=== PATIENT | female | born 1960 | race Two or more races ===

== ENCOUNTER 2017-04-12 11:31 | Emergency (ER) | payer SELFPAY ==
[~2017-04-12] VITALS: Ht 167.6 cm; Wt 68.0 kg
--- NOTE | 2017-04-12 11:31 | NUR ---
[id number] S/P SEIZURE WHILE DRIVING. POSTICTAL. BS IN FIELD 105. NAD NOTED. VSS. RR EVEN AND UNLABORED. PENDING MD LAU.
[2017-04-12] MEDS ORDERED: ACETAMINOPHEN ES 500 MG TABLET ONE (11:48)
[2017-04-12 11:58] LABS: BASOPHILS # (AUTO) 0.1 /CMM (0.0-0.2); BASOPHILS % (AUTO) 0.9 % (0.0-2.0); EOSINOPHILS # (AUTO) 0.3 /CMM (0.0-0.7); EOSINOPHILS % (AUTO) 2.9 % (0.0-6.0); HEMATOCRIT 45 % (33-45); HEMOGLOBIN 14.9 g/dL (11.5-14.8); LYMPHOCYTES # (AUTO) 2.1 /CMM (0.8-4.8); LYMPHOCYTES % (AUTO) 21.8 % (20.0-44.0); MEAN CORPUSCULAR HEMOGLOBIN 32 PG (26.0-33.0); MEAN CORPUSCULAR HGB CONC 33 g/dl (31.0-36.0); MEAN CORPUSCULAR VOLUME 96 fL (82-100); MONOCYTES # (AUTO) 1.1 /CMM (0.1-1.30); MONOCYTES % (AUTO) 11.3 % (2.0-12.0); NEUTROPHILS # (AUTO) 6.2 /CMM (1.8-8.9); NEUTROPHILS % (AUTO) 63.1 % (43.0-81.0); PLATELET COUNT (AUTO) 331 /CMM (150-450); RED BLOOD CELL COUNT(AUTO) 4.62 MIL/uL (4.0-5.2); WHITE BLOOD COUNT (AUTO) 9.8 K/uL (4.3-11.0)
[2017-04-12] MEDS ORDERED: LEVETIRACETAM (500MG) 500 MG in IV NS 0.9% 100 ML IV ONE (12:00)
[2017-04-12] MEDS ORDERED: ACETAMINOPHEN ES 500 MG TABLET PO ONE (12:00)
[2017-04-12 12:07] LABS: CALCIUM, SERUM 9.4 mg/dL (8.5-10.1); CARBON DIOXIDE 23 mmol/L (21-32); CHLORIDE 102 mmol/L (98-107); CREATININE 0.9 mg/dL (0.6-1.3); GLUCOSE 107 mg/dL (74-106); POTASSIUM 3.6 mmol/L (3.5-5.1); SODIUM SERUM 137 mmol/L (136-145); UREA NITROGEN, BLOOD 12 mg/dL (7-18)
--- NOTE | 2017-04-12 12:10 | NUR ---
MEDS GIVEN ORDERED
[2017-04-12 12:11] LABS: PROTHROMBIN TIME 10.4 SECS (9.5-12.7)
[2017-04-12 12:13] LABS: ALANINE AMINOTRANSFERASE 32 U/L (12-78); ALBUMIN 4.1 g/dL (3.4-5.0); ALCOHOL, BLOOD < 3 mg/dL (0-0); ALKALINE PHOSPHATASE 75 U/L (46-116); ASPARTATE AMINOTRANSFERASE 16 U/L (15-37); BILIRUBIN,TOTAL 0.3 mg/dL (0.2-1.0); TOTAL PROTEIN, SERUM 7.5 g/dL (6.4-8.2)
[2017-04-12 13:49] VITALS: BP 125/87
== END 2017-04-12 13:51 | disposition home or self-care (01) ==
LOC: ER 11:32
DX: G40.909 Epilepsy, unspecified, not intractable, without status epilepticus (principal); F17.210 Nicotine dependence, cigarettes, uncomplicated
CPT/HCPCS: 36415; 80048; 80076; 80305; 85025; 85730; 96365; 99284; A4606; G0480; J1953; J7030; Z7610

== ENCOUNTER 2019-11-14 13:48 | Inpatient (IN) | payer OTHER ==
[2019-11-14] VITALS (9 sets, daily range): BP systolic 89–148; BP diastolic 47–81
[~2019-11-14] VITALS: Ht 177.8 cm; Wt 77.1 kg
--- NOTE | 2019-11-14 13:48 | NUR ---
PT BIBRA FROM HOME C/O PALPITATIONS STARTED THIS MORNING, PT IS AAOX4, NOT IN RESPIRATORY DISTRESS, HOOKED TO APPLE TURNER, KEPT RESTED AND COMFORTABLE. WILL CONTINUE TO MONITOR.
--- NOTE | 2019-11-14 13:55 | NUR ---
IV LINE ESTABLISHED BLOOD DRAWN AND SENT TO LAB
--- NOTE | 2019-11-14 14:02 | NUR ---
ROSINA PICHARDO AT BEDSIDE FOR EKG.
[2019-11-14] MEDS ORDERED: DILTIAZEM HCL 25 MG IV ONE (14:08)
[2019-11-14] MEDS ORDERED: Magnesium 1GM/D5W 100ML PREMIX PIGGYBACK IV ONE (14:20)
[2019-11-14] MEDS ORDERED: Magnesium 1GM/D5W 100ML PREMIX 200 ML IV ONE (14:21)
[2019-11-14 14:24] LABS: BASOPHILS # (AUTO) 0.1 /CMM (0.0-0.2); BASOPHILS % (AUTO) 0.8 % (0.0-2.0); EOSINOPHILS % (AUTO) 1.9 % (0.0-6.0); HEMATOCRIT 44 % (33-45); HEMOGLOBIN 14.5 g/dL (11.5-14.8); MEAN CORPUSCULAR HGB CONC 33 g/dl (31.0-36.0); MEAN CORPUSCULAR VOLUME 96 fL (82-100); MONOCYTES # (AUTO) 0.7 /CMM (0.1-1.30); MONOCYTES % (AUTO) 8.3 % (2.0-12.0); NEUTROPHILS # (AUTO) 5.9 /CMM (1.8-8.9); PLATELET COUNT (AUTO) 242 /CMM (150-450); RED BLOOD CELL COUNT(AUTO) 4.56 MIL/uL (4.0-5.2); WHITE BLOOD COUNT (AUTO) 8.9 K/uL (4.3-11.0)
[2019-11-14] MEDS ORDERED: IV NS 0.9% 500 ML BAG IV ONE (14:30)
[2019-11-14] MEDS ORDERED: PROCAINAMIDE HCL 500 MG/ML VIAL IV ONE (14:30)
--- NOTE | 2019-11-14 14:30 | NUR ---
DR MORELOS CARDIO CERTIFIED APPLIANCE SERVICE TECHNICIAN TALKING TO DR PORTER.
[2019-11-14 14:31] LABS: CALCIUM, SERUM 9.3 mg/dL (8.5-10.1); CARBON DIOXIDE 29 mmol/L (21-32); CHLORIDE 103 mmol/L (98-107); CREATININE 0.9 mg/dL (0.6-1.3); GLUCOSE 120 mg/dL (74-106); POTASSIUM 3.8 mmol/L (3.5-5.1); SODIUM SERUM 139 mmol/L (136-145); UREA NITROGEN, BLOOD 16 mg/dL (7-18)
--- NOTE | 2019-11-14 14:34 | NUR ---
TRANSFER KNITTER AT BEDSIDE FOR XRAY.
[2019-11-14] MEDS ORDERED: AMIODARONE 150 MG/3 ML VIAL IV ONE ×3 (14:35→15:00)
[2019-11-14 14:47] LABS: ALANINE AMINOTRANSFERASE 24 U/L (12-78); ALBUMIN 4.3 g/dL (3.4-5.0); ALKALINE PHOSPHATASE 80 U/L (46-116); ASPARTATE AMINOTRANSFERASE 19 U/L (15-37); B-TYPE NATRIURETIC PEPTIDE 92 PG/ML (0-125); BILIRUBIN,DIRECT 0.1 mg/dL (0.0-0.2); BILIRUBIN,TOTAL 0.4 mg/dL (0.2-1.0); TOTAL PROTEIN, SERUM 7.8 g/dL (6.4-8.2)
--- NOTE | 2019-11-14 14:48 | NUR ---
MOVE SHEET SUBMITTED TO ADMITTING AND CALLED FOR ICU BED.
[2019-11-14] MEDS ORDERED: AMIODARONE 150 MG in IV D5W 100 ML IV ONE (15:00)
[2019-11-14] MEDS ORDERED: AMIODARONE 450 MG in IV D5W 250 ML IV ONE (15:00)
--- NOTE | 2019-11-14 15:13 | NUR ---
GOT ICU BED 262
--- NOTE | 2019-11-14 15:45 | NUR ---
RN NOTES RECEIVED PT FROM ER IN ROOM 262, PT IS A/Ox4, ON RA, NO DISTRESS NOTED, ON TELE , SR HR IN 80'S , PT IS ON AMIO GTT AT 1 MG/ MIN AT THIS TIME THAT WAS STARTED IN ER ALREADY, L HAND IV G 20 AND L AC IV G 18 SITES CLEAN, DRY AND INTACT,PT AMBULATORY AND WANTS TO WALK TO THE BATHROOM, VOIDING WELL, , STEADY GAIT, DR MORELOS AT THE BEDSIDE, AWARE THAT PT HR IS SINUS RHYTHM AT THIS TIME . SR UP x3, CALL LIGHT WITHIN EASY REACH, BED LOCKED AND IN LOWEST POSITION, CONTINUE TO MONITOR .
--- NOTE | 2019-11-14 15:48 | NUR ---
REPORT GIVEN TO MELISSA AGUAYO FOR CHRISTOPHE. WITH ON GOING AMIODARONE DRIP TITRATE TO EFFECT.
[2019-11-14] MEDS ORDERED: ONDANSETRON HCL/PF 4 MG/2 ML VIAL IVP PRN (16:00)
[2019-11-14] MEDS ORDERED: MAG HYDROX/AL HYDROX/SIMETH 30 ML UDC PO PRN (16:00)
[2019-11-14] MEDS ORDERED: MAGNESIUM HYDROXIDE 30 ML UDC PO PRN (16:00)
[2019-11-14] MEDS ORDERED: ZOLPIDEM TARTRATE 5 MG TABLET PO PRN (16:00)
[2019-11-14] MEDS ORDERED: MORPHINE SULFATE INJ 2 MG/ML DISP.SYRIN IV PRN (16:00)
[2019-11-14] MEDS ORDERED: HYDROCODONE/APAP 5/325MG 1 EACH TABLET PO PRN (16:00)
[2019-11-14] MEDS ORDERED: ACETAMINOPHEN 325 MG TABLET PO PRN (16:00)
[2019-11-14 18:04] LABS: MAGNESIUM 2.8 mg/dL (1.8-2.4); PHOSPHORUS 4.2 mg/dL (2.5-4.9)
[2019-11-14] MEDS: AMIODARONE 450 MG in IV D5W 250 ML IV PRN ×2 (18:13→21:08)
[2019-11-14 18:15] LABS: THYROID STIMULATING HORMONE 0.799 uIU/mL (0.358-3.74)
--- NOTE | 2019-11-14 18:23 | NUR ---
RN NOTES PT STABLE, VSS STABLE, SR ON MONITOR, AMIO GTT AT 1MG/MIN RUNNING, CONTINUE AMIO GTT PER DR MORELOS ORDER , PT DENIES ANY DISTRESS , WILL ENDORSE TO DIRECTOR FRAUD NURSE FOR CONTINUITY OF CARE.
[2019-11-15] VITALS (12 sets, daily range): BP systolic 93–115; BP diastolic 49–71
[2019-11-15 04:40] LABS: BASOPHILS # (AUTO) 0.1 /CMM (0.0-0.2); BASOPHILS % (AUTO) 0.7 % (0.0-2.0); EOSINOPHILS % (AUTO) 3.3 % (0.0-6.0); HEMATOCRIT 38 % (33-45); HEMOGLOBIN 12.4 g/dL (11.5-14.8); LYMPHOCYTES # (AUTO) 2.5 /CMM (0.8-4.8); LYMPHOCYTES % (AUTO) 30.5 % (20.0-44.0); MEAN CORPUSCULAR HGB CONC 33 g/dl (31.0-36.0); MEAN CORPUSCULAR VOLUME 95 fL (82-100); MONOCYTES # (AUTO) 0.7 /CMM (0.1-1.30); MONOCYTES % (AUTO) 8.7 % (2.0-12.0); NEUTROPHILS # (AUTO) 4.7 /CMM (1.8-8.9); NEUTROPHILS % (AUTO) 56.8 % (43.0-81.0); PLATELET COUNT (AUTO) 205 /CMM (150-450); RED BLOOD CELL COUNT(AUTO) 3.97 MIL/uL (4.0-5.2); WHITE BLOOD COUNT (AUTO) 8.2 K/uL (4.3-11.0)
[2019-11-15 05:04] LABS: ALBUMIN 3.5 g/dL (3.4-5.0); BILIRUBIN,TOTAL 0.5 mg/dL (0.2-1.0); CALCIUM, SERUM 8.6 mg/dL (8.5-10.1); CREATININE 0.8 mg/dL (0.6-1.3); MAGNESIUM 2.5 mg/dL (1.8-2.4); PHOSPHORUS 3.7 mg/dL (2.5-4.9); TOTAL PROTEIN, SERUM 6.5 g/dL (6.4-8.2)
[2019-11-15 05:09] LABS: THYROID STIMULATING HORMONE 1.353 uIU/mL (0.358-3.74)
--- NOTE | 2019-11-15 07:02 | NUR ---
RN CLOSING NOTE NO ACUTE CHANGES OBSERVED OVERNIGHT. PT ALERT AND ORIENTED X 4. PT IS SINUS RHYTHM AND ON AMIO DRIP 0.5MG/MIN ORDERED. ALL NEEDS MET AND ATTENDED TO. CALL LIGHT WITHIN REACH, SAFETY MEASURES IN PLACE, WILL ENDORSE TO MORNING RN FOR FOR CONTINUATION OF CARE.
--- NOTE | 2019-11-15 07:30 | NUR ---
PATIENT IS SR ON MONITOR, OKAY PER DR MORELOS TO DC AMIO AND DOWNGRADE.
[2019-11-15] MEDS ORDERED: METOPROLOL SUCCINATE 50 MG TAB.SR.24H PO SCH (09:00)
[2019-11-15] MEDS ORDERED: METO50TA7 PO (10:14)
--- NOTE | 2019-11-15 11:00 | NUR ---
RN NOTES PATIENT HAS BEEN DISCHARGE HOME PER DC ORDERS. MALIK PT TO SECURITY AND SON PICKED HER UP SAFELY .
== END 2019-11-15 12:50 | disposition home or self-care (01) | DRG 310 ==
LOC: ER 13:48 → ICU 15:20
PROVIDERS: ADMIT Nurse Practitioner Acute Care; ATTEND Nurse Practitioner Acute Care
DX: I48.91 Unspecified atrial fibrillation (principal); I47.1 Supraventricular tachycardia; Z87.891 Personal history of nicotine dependence; R73.9 Hyperglycemia, unspecified
CPT/HCPCS: 36415; 71045-TC; 80048-TC; 80053-TC; 80061-TC; 80076-TC; 83735-TC; 83880; 84100-TC; 84439-TC; 84443-TC; 84484-TC; 85025-TC; 87081-TC; 93307-TC; G0378; J0282; J2690; J3475; J3490; J7040; J7060

== ENCOUNTER 2020-02-17 13:57 | Emergency (ER) | payer OTHER ==
[~2020-02-17] VITALS: Ht 175.3 cm; Wt 77.1 kg
[~2020-02-17 13:57] MED LIST: METO50TA7 PO
--- NOTE | 2020-02-17 14:05 | NUR ---
ER BED 7 PT BIB SELF. CHIEF COMPLAINT OF PALPITATIONS. DENIES CHEST PAIN. NO SOB NOTED. VS CHECKED. PT STATES SHE HAS HX OF AFIB AND COVID. AWAITING MD LAU.
--- NOTE | 2020-02-17 14:12 | NUR ---
DR MOTA AT BEDSIDE
--- NOTE | 2020-02-17 14:25 | NUR ---
BLOOD COLLECTED AND SENT TO LAB
[2020-02-17 14:26] LABS: BASOPHILS # (AUTO) 0.1 /CMM (0.0-0.2); BASOPHILS % (AUTO) 0.7 % (0.0-2.0); EOSINOPHILS % (AUTO) 1.5 % (0.0-6.0); HEMATOCRIT 41 % (33-45); HEMOGLOBIN 13.7 g/dL (11.5-14.8); LYMPHOCYTES # (AUTO) 1.8 /CMM (0.8-4.8); LYMPHOCYTES % (AUTO) 18.1 % (20.0-44.0); MEAN CORPUSCULAR HGB CONC 34 g/dl (31.0-36.0); MEAN CORPUSCULAR VOLUME 93 fL (82-100); MONOCYTES # (AUTO) 0.8 /CMM (0.1-1.30); MONOCYTES % (AUTO) 8.2 % (2.0-12.0); NEUTROPHILS % (AUTO) 71.5 % (43.0-81.0); PLATELET COUNT (AUTO) 224 /CMM (150-450); RED BLOOD CELL COUNT(AUTO) 4.35 MIL/uL (4.0-5.2); WHITE BLOOD COUNT (AUTO) 9.8 K/uL (4.3-11.0)
[2020-02-17 14:34] LABS: CALCIUM, SERUM 8.5 mg/dL (8.5-10.1); CARBON DIOXIDE 26 mmol/L (21-32); CHLORIDE 107 mmol/L (98-107); CREATININE 0.8 mg/dL (0.6-1.3); GLUCOSE 131 mg/dL (74-106); POTASSIUM 3.8 mmol/L (3.5-5.1); SODIUM SERUM 142 mmol/L (136-145); UREA NITROGEN, BLOOD 15 mg/dL (7-18)
[2020-02-17 15:16] LABS: T4 (THYROXINE) 9.5 ug/dL (4.7-13.3); THYROID STIMULATING HORMONE 0.807 uIU/mL (0.358-3.74)
[2020-02-17 15:41] VITALS: BP 131/82
--- NOTE | 2020-02-17 15:41 | NUR ---
D/C Patient discharged to home in stable condition. Written and verbal after care instructions given. Patient verbalizes understanding of instruction.IV removed. Catheter intact and site benign. Pressure and 4x4 applied to site. No bleeding noted.
== END 2020-02-17 15:43 | disposition home or self-care (01) ==
LOC: ER 14:05
DX: I48.91 Unspecified atrial fibrillation (principal); Z79.899 Other long term (current) drug therapy
CPT/HCPCS: 36415; 71045-TC; 80048-TC; 83880; 84436-TC; 84443-TC; 84484-TC; 85025-TC

== ENCOUNTER 2020-08-19 18:35 | Inpatient (IN) | payer OTHER ==
[~2020-08-19] VITALS: Ht 170.2 cm; Wt 77.6 kg
[2020-08-19] MEDS ORDERED: IV NS 0.9% 1,000 ML BAG IV ONE (19:00)
--- NOTE | 2020-08-19 19:00 | NUR ---
The patient is in ER bed #6 for c/o rapid heart rate, greater than 200. The patient denies chest pain or any other pain at this time. In room air and denies SOB. Respiration regular and unlabored. Patient is attached on a monitor. Will continue to monitor the patient.
[2020-08-19 20:03] LABS: BASOPHILS # (AUTO) 0.1 /CMM (0.0-0.2); BASOPHILS % (AUTO) 0.6 % (0.0-2.0); EOSINOPHILS % (AUTO) 1.3 % (0.0-6.0); HEMATOCRIT 43 % (33-45); HEMOGLOBIN 13.9 g/dL (11.5-14.8); LYMPHOCYTES # (AUTO) 2.2 /CMM (0.8-4.8); LYMPHOCYTES % (AUTO) 19.7 % (20.0-44.0); MEAN CORPUSCULAR HGB CONC 33 g/dl (31.0-36.0); MEAN CORPUSCULAR VOLUME 95 fL (82-100); MONOCYTES # (AUTO) 0.8 /CMM (0.1-1.30); MONOCYTES % (AUTO) 7.4 % (2.0-12.0); NEUTROPHILS # (AUTO) 7.8 /CMM (1.8-8.9); PLATELET COUNT (AUTO) 192 /CMM (150-450); RED BLOOD CELL COUNT(AUTO) 4.49 MIL/uL (4.0-5.2)
[2020-08-19 20:08] LABS: CARBON DIOXIDE 25 mmol/L (21-32); CHLORIDE 102 mmol/L (98-107); CREATININE 0.7 mg/dL (0.6-1.3); GLUCOSE 103 mg/dL (74-106); POTASSIUM 4.1 mmol/L (3.5-5.1); SODIUM SERUM 138 mmol/L (136-145); UREA NITROGEN, BLOOD 14 mg/dL (7-18)
[2020-08-19] MEDS ORDERED: DILTIAZEM HCL 25 MG IV ONE (20:13)
[2020-08-19] MEDS ORDERED: DILTIAZEM HCL 50 MG IV ONE (20:13)
[2020-08-19 20:21] LABS: B-TYPE NATRIURETIC PEPTIDE 123 PG/ML (0-125)
[2020-08-19] MEDS ORDERED: DILTIAZEM HCL 25 MG IV IV ONE (20:30)
--- NOTE | 2020-08-19 20:59 | NUR ---
LAB CALLED REGARDING NEGATIVE COVID RESULT.
[2020-08-19] MEDS ORDERED: DIGOXIN INJ 0.5 MG/2 ML AMPUL ONE (21:15)
[2020-08-19] MEDS ORDERED: DIGOXIN INJ 0.5 MG/2 ML AMPUL IV ONE (21:30)
--- NOTE | 2020-08-19 21:32 | NUR ---
ER TALKING TO DR. ARREDONDO REGARDING PT ADMISSION.
--- NOTE | 2020-08-19 21:47 | NUR ---
THE PATIENT IN RESTING AT THIS TIME. DENIES ANY DISCOMFORT. IN ROOM AIR AND OXYGEN SATURATION IS AT 100%. DENIES SOB. RESPIRATION REGULAR AND UNLABORED. PATIENT IS ATTACHED ON A MONITOR. WILL CONTINUE TO MONITOR THE PATIENT.
[2020-08-19] MEDS ORDERED: METOPROLOL SUCCINATE 50 MG TAB.SR.24H PO SCH (22:00)
--- NOTE | 2020-08-19 22:13 | NUR ---
report given to RN Gatito
[2020-08-19] MEDS ORDERED: ACETAMINOPHEN 325 MG TABLET PO PRN (22:30)
[2020-08-19] MEDS ORDERED: ZOLPIDEM TARTRATE 5 MG TABLET PO PRN (22:30)
[2020-08-19] MEDS ORDERED: DILTIAZEM HCL IV 125 MG in IV NS 0.9% 100 ML IV PRN (22:30)
--- NOTE | 2020-08-19 22:47 | NUR ---
transfered the patient to [facility] per acls protocol.
--- NOTE | 2020-08-19 22:48 | NUR ---
RN NOTE RECEIVED PT FROM ER ACCOMPANIED BY RN AND EMT. PT IS ALERT AND ORIENTED X 3. ON ROOM AIR, RESPIRATIONS UNLABORED, DENIES PAIN OR DISCOMFORT, AMBULATORY, PLACED ON RIBBON LAPPER TENDER SHOWING NSR 73. WITH LEFT AC 18G IV PATENT AND INTACT. COMPREHENSIVE PHYSICAL ASSESSMENT COMPLETED, SKIN INTACT, BELONGINGS CHECKED, VITAL SIGNS TAKEN AND STABLE, PLAN OF CARE DISCUSSED, CALL LIGHT WITHIN REACH, SAFETY MEASURES IN PLACE PER PROTOCOL
[2020-08-19 23:00] VITALS: BP 120/77
--- NOTE | 2020-08-19 23:07 | NUR ---
RN NOTE PT IS CURRENTLY SINUS WITH HEART RATE OF 73. NOTIFIED DR. ARREDONDO WHO STATES NOT TO START THE CARDIZEM DRIP.
[2020-08-20] VITALS: BP 110/62
--- NOTE | 2020-08-20 02:00 | NUR ---
RN NOTE PT CURRENTLY SLEEPING WITHOUT SIGNS OF APPARENT DISTRESS. TELE MONITOR READS NSR 59.
[2020-08-20 04:00] VITALS: BP 101/48
[2020-08-20 06:30] LABS: BASOPHILS # (AUTO) 0.1 /CMM (0.0-0.2); BASOPHILS % (AUTO) 0.8 % (0.0-2.0); EOSINOPHILS % (AUTO) 1.9 % (0.0-6.0); HEMATOCRIT 38 % (33-45); HEMOGLOBIN 12.7 g/dL (11.5-14.8); LYMPHOCYTES # (AUTO) 2.3 /CMM (0.8-4.8); LYMPHOCYTES % (AUTO) 28.6 % (20.0-44.0); MEAN CORPUSCULAR HGB CONC 33 g/dl (31.0-36.0); MEAN CORPUSCULAR VOLUME 95 fL (82-100); MONOCYTES # (AUTO) 0.8 /CMM (0.1-1.30); MONOCYTES % (AUTO) 9.8 % (2.0-12.0); NEUTROPHILS # (AUTO) 4.7 /CMM (1.8-8.9); NEUTROPHILS % (AUTO) 58.9 % (43.0-81.0); PLATELET COUNT (AUTO) 186 /CMM (150-450); RED BLOOD CELL COUNT(AUTO) 4.02 MIL/uL (4.0-5.2)
--- NOTE | 2020-08-20 06:30 | NUR ---
RN NOTE NO ACUTE CHANGES OBSERVED OVERNIGHT. PT IS ALERT AND ORIENTED X 3. ON ROOM AIR, RESPIRATIONS UNLABORED, DENIES PAIN OR DISCOMFORT, AMBULATORY WITHOUT ASSIST, PT IS SR/SB ON TELE MONITOR 58. WITH LEFT AC 18G IV PATENT AND INTACT. FLUSHING WELL WITHOUT COMPLICATIONS. ALL NEEDS MET AND ATTENDED TO, PT TO HAVE 2D ECHO IN AM, WILL ENDORSE TO MORNING RN FOR CHRISTOPHE
[2020-08-20 07:02] LABS: THYROID STIMULATING HORMONE 1.126 uIU/mL (0.358-3.74)
--- NOTE | 2020-08-20 07:30 | NUR ---
RN OPENING NOTES PATIENT RECEIVED IN BED IN STABLE CONDITION. ON ROOM AIR WITH 02 OF 98 %. IV SITE TO LEFT ARM NOTED PATENT AND WITH SALINE LOCK. BED IS IN LOWEST AND LOCKED POSITION. CALL LIGHT WITH IN REACH.
[2020-08-20 08:00] VITALS: BP 101/47
[2020-08-20] MEDS ORDERED: DIGOXIN 0.125 MG TABLET PO SCH (09:00)
[2020-08-20] MEDS ORDERED: ASPIRIN EC 81 MG TABLET.DR PO SCH (09:00)
[2020-08-20 10:14] LABS: CALCIUM, SERUM 8.3 mg/dL (8.5-10.1); CREATININE 0.8 mg/dL (0.6-1.3); POTASSIUM 4.6 mmol/L (3.5-5.1)
--- NOTE | 2020-08-20 12:34 | NUR ---
Patient discharged to home in stable condition and no c/o pain or discomfort. Patient teaching done regarding discharge and to follow up with cardiology and digoxin to be taken qday per MD goodman. Patient left the facility with daughter nikole in private car. VITALS WNL.
== END 2020-08-20 12:00 | disposition home or self-care (01) | DRG 310 ==
LOC: ER 18:54 → TELE-TD 22:17 → TELE1 22:24
PROVIDERS: ADMIT Internal Medicine; ATTEND Internal Medicine
DX: I48.0 Paroxysmal atrial fibrillation (principal); Z20.822 Contact with and (suspected) exposure to COVID-19; Z79.82 Long term (current) use of aspirin; Z86.16 Personal history of COVID-19; Z79.899 Other long term (current) drug therapy; Z87.891 Personal history of nicotine dependence
CPT/HCPCS: 36415; 71045-TC; 80048-TC; 80162-TC; 83880; 84443-TC; 84484-TC; 85025-TC; 85730-TC; 87081-TC; 93307-TC; C9803; G0378; J1160; J3490; J7030